=== PATIENT | male | born 1965 | race African-American/Black ===

== ENCOUNTER 2016-12-24 16:52 | Emergency (ER) | payer MEDICARE ==
[~2016-12-24] VITALS: Ht 182.9 cm; Wt 149.5 kg
[~2016-12-24 16:52] MED LIST: ASPI81TA82 PO; ESCI20TA PO; HYDR10TA23 PO; LASI80TA PO; LISI-360 PO; METO100T PO; POTA20IN3 PO; PROC1TAB8 PO; ZOCO40TA PO
[2016-12-24 16:53] VITALS: BP 144/90; PULSE 73; RESP 18; TEMP 98; O2SAT 96
== END 2016-12-24 17:20 | disposition left against medical advice (07) ==
LOC: NED 16:52
DX: R10.9 Unspecified abdominal pain (principal); Z53.21 Procedure and treatment not carried out due to patient leaving prior to being seen by health care provider
CPT/HCPCS: 99281

== ENCOUNTER 2017-02-22 21:35 | Emergency (ER) | payer MEDICARE ==
[~2017-02-22] VITALS: Ht 170.2 cm; Wt 180.0 kg
[2017-02-22 21:37] VITALS: BP 206/105; PULSE 81; RESP 20; TEMP 98.9; O2SAT 96
[2017-02-22 23:17] VITALS: BP_SYST 22; BP_SYST 222; BP_DIAS 99; PULSE 79; RESP 20; O2SAT 97
[2017-02-22 23:18] VITALS: BP 221/102; PULSE 78; RESP 20; O2SAT 97
[2017-02-22] MEDS ORDERED: FURO40TA PO (23:37)
[2017-02-22] MEDS ORDERED: LOSA100T PO (23:37)
[2017-02-22] MEDS ORDERED: METF1000 PO (23:37)
[2017-02-22] MEDS ORDERED: CLON0.2T PO (23:37)
[2017-02-22] MEDS ORDERED: ASPI81TA11 PO (23:37)
[2017-02-22] MEDS ORDERED: SIMV40TA PO (23:37)
[2017-02-22] MEDS ORDERED: METO100T PO (23:37)
[2017-02-22] MEDS ORDERED: SERT-132 PO (23:37)
[2017-02-22] MEDS ORDERED: ISOS60TA PO (23:37)
[2017-02-23] MEDS ORDERED: cefTRIAXone INJ 1,000 MG in SODIUM CHLORIDE 0.9% INJ 100 ML IV ONE ×2
[2017-02-23] MEDS ORDERED: ACETAMINOPHEN/HYDROcodone 325 MG/5 MG TAB PO ONE
[2017-02-23] MEDS ORDERED: RESP: ALBUTEROL 2.5 MG/IPRATROPIUM 0.5 MG NEB (SCH) NEB ONE
[2017-02-23] MEDS ORDERED: cloNIDine HCL 0.1 MG TAB PO ONE
[2017-02-23] MEDS ORDERED: AZITHROMYCIN INJ 500 MG in SODIUM CHLOR 0.9% 250 ML INJ 250 ML IV ONE ×2
--- NOTE | 2017-02-23 00:14 | RADRPT ---
EXAM DATE/TIME: 02/23/2017 00:05 [facility] COMPARISON: CT BRAIN W/O CONTRAST, February 08, 2016, 16:06. INDICATIONS : Cephalgia. RADIATION DOSE: 51.01 CTDIvol (mGy) MEDICAL HISTORY : Hypertension. Gastroesophageal reflux disease. Coronary artery disease. SURGICAL HISTORY : Cardiac catherization. ENCOUNTER: Initial ACUITY: 1 day PAIN SCALE: 5/10 LOCATION: cranial TECHNIQUE: Multiple contiguous axial images were obtained of the head. Using automated exposure control and adj ustment of the mA and/or kV according to patient size, radiation dose was kept as low as reasonably a chievable to obtain optimal diagnostic quality images. FINDINGS: CEREBRUM: The ventricles are normal for age. No evidence of midline shift, mass lesion, hemorrhage or acute in farction. No extra-axial fluid collections are seen. POSTERIOR FOSSA: The cerebellum and brainstem are intact. The 4th ventricle is midline. The cerebellopontine angle i s unremarkable. EXTRACRANIAL: The visualized portion of the orbits is intact. SKULL: The calvaria is intact. No evidence of skull fracture. CONCLUSION: Stable brain appearance. No acute intracranial findings Tawanda Palomares MD on February 23, 2017 at 0:10 Board Certified Radiologist. This report was verified electronically.
[2017-02-23 00:21] LABS: AUTOMATED NEUTROPHIL # 5.3 TH/MM3 (1.8-7.7); BASOPHIL # 0.1 TH/MM3 (0-0.2); BASOPHIL % 0.8 % (0.0-2.0); EOSINOPHIL # 0.6 TH/MM3 (0-0.4); EOSINOPHIL % 6.6 % (0.0-4.0); HEMATOCRIT 39.1 % (39.0-51.0); HEMO FLAGS DIFF FINAL; LYMPH % 19.7 % (9.0-44.0); LYMPHOCYTE # 1.8 TH/MM3 (1.0-4.8); MEAN CELL VOLUME 78.1 FL (80.0-100.0); MEAN CORPUSCULAR HEMOGLOBIN 25.7 PG (27.0-34.0); MEAN CORPUSCULAR HGB CONC 32.9 % (32.0-36.0); MONO % 15.2 % (0.0-8.0); NEUT % 57.7 % (16.0-70.0); PLATELET COUNT 239 TH/MM3 (150-450); RED BLOOD COUNT 5.01 MIL/MM3 (4.50-5.90); RED CELL DISTRIBUTION WIDTH 15.2 % (11.6-17.2); WHITE BLOOD COUNT 9.2 TH/MM3 (4.0-11.0)
--- NOTE | 2017-02-23 00:27 | PD ---
HPI Chief Complaint: Cold / Flu Symptoms Time Seen by Provider: 23:12 Travel History International Travel<30 days: No Contact w/Intl Traveler<30days: No Traveled to known affect area: No History of Present Illness HPI The patient is a 51 year old male who presents to the [facility] emergency department with a history of cough, congestion that he reports began a week ago. The patient reports that the cough is mainly dry in character, however it is occasionally productive of white sputum. He also reports having a white nasal discharge and postnasal drip with sore throat. The patient reports having a frontal sinus headache associated with this. He reports having nausea but no vomiting. He reports that usually when he gets sick his blood pressure will go up and his blood pressure on arrival at its [place] was 221/102. He is due for his nighttime medication. He reports that he has been taking an over-the- counter decongestant for his acute cold symptoms. The patient denies having any worsening lower extremity edema, calf pain, or erythema. He denies having any recent weight gain. The patient denies recent fevers, neck pain, chest pain except with coughing, shortness of breath, abdominal pain, vomiting, diarrhea, urinary symptoms, or neurologic symptoms. [facility] Past Medical History Narrative Medical The patient's past medical history is significant for congestive heart failure, hypertension, hyperlipidemia, acid reflux, gout, anxiety disorder, chronic back pain. Asthma: No Autoimmune Disease: No Anxiety: Yes Heart Rhythm Problems: No Cancer: No Cardiac Catheterization: Yes Cardiomyopathy: Yes (CARDIOMEGALY) Cardiovascular Problems: Yes (ENLARGED HEART) High Cholesterol: Yes Chemotherapy: No Chest Pain: Yes Congestive Heart Failure: Yes COPD: No Coronary Artery Disease: Yes Diabetes: No Diminished Hearing: No Endocrine: No Gastrointestinal Disorders: Yes GERD: Yes Gout: Yes Genitourinary: No Hepatitis: No Hypertension: Yes Immune Disorder: Yes Implanted Vascular Access Dvce: No Musculoskeletal: Yes (CHRONIC BACK PAIN) Neurologic: No Psychiatric: No Reproductive: No Respiratory: Yes (dyspnea on exertion/CHF) Integumentary: Yes (GOUT) Immunizations Current: No Myocardial Infarction: No Radiation Therapy: No Sleep Apnea: No Thyroid Disease: No Ulcer: Yes Tetanus Vaccination: > 5 Years Influenza Vaccination: No Past Surgical History Appendectomy: No Cholecystectomy: No Coronary Artery Bypass Graft: No Other Surgery: No Family History Family Myocardial Infarction: Yes Social History Alcohol Use: No Tobacco Use: No Substance Use: No Allergies-Medications (Allergen,Severity, Reaction): Coded Allergies: Penicillin (Verified Allergy, Severe, HIVES, 02/08/16) Reported Meds & Prescriptions Reported Meds & Active Scripts Active Reported Losartan (Losartan Potassium) 100 Mg Tab 100 Mg PO DAILY Furosemide 40 Mg Tab 40 Mg PO DAILY Simvastatin 40 Mg Tab 40 Mg PO HS Metformin (Metformin HCl) 1,000 Mg Tab 1,000 Mg PO DAILY With a meal Isosorbide Mononitrate ER (Isosorbide Mononitrate) 60 Mg Tab 60 Mg PO BID Clonidine (Clonidine HCl) 0.2 Mg Tab 0.2 Mg PO QID PRN Aspirin EC (Aspirin) 81 Mg Tabdr 81 Mg PO DAILY Metoprolol Tartrate 100 Mg Tab 100 Mg PO BID Sertraline (Sertraline HCl) 50 Mg Tab 50 Mg PO DAILY Review of Systems Except as stated in HPI: all other systems reviewed are Neg General / Constitutional: No: Fever Eyes: No: Visual changes HENT: Positive: Headaches, Sore Throat, Rhinorrhea, Congestion, No: Neck Stiffness, Neck Pain Cardiovascular: Positive: Chest Pain or Discomfort (chest wall pain with coughing), No: Dyspnea on exertion Respiratory: Positive: Cough, No: Shortness of Breath Gastrointestinal: Positive: Nausea, Loss of Appetite, No: Vomiting, Diarrhea, Abdominal Pain Genitourinary: No: Dysuria, Flank Pain Musculoskeletal: No: Pain Skin: No Rash Neurologic: No: Weakness, Focal Abnormalities, Change in Mentation, Slurred Speech, Sensory Disturbance Psychiatric: No: Depression Endocrine: No: Polydipsia Hematologic/Lymphatic: No: Easy Bruising Physical Exam Narrative General: The patient is a well-developed well-nourished male in no acute distress. Head and Neck exam: Head is normocephalic atraumatic. Sinuses: The patient has frontal sinus tenderness on palpation. Eyes: EOMI, pupils are equal round and reactive to light. Nose: Midline septum with erythematous edematous nasal mucosa with a white nasal discharge. Mouth: Dentition unremarkable. Moist mucus membranes. Posterior oropharynx is mildly erythematous without exudates. No tonsillar hypertrophy. Uvula midline. Airway patent. Neck: No palpable lymphadenopathy. No nuchal rigidity. No thyromegaly. Cardiovascular: Regular rate and rhythm without murmurs, gallops, or rubs. No pulse deficit to the extremities and simultaneous auscultation and palpation of his radial artery. Lungs: Soft expiratory wheezes are audible throughout bilateral lung finnegan, no rhonchi or crackles. No accessory muscle use. No paroxysmal abdominal breathing. Abdomen: Soft, without tenderness to palpation in all 4 quadrants of the abdomen. No guarding, rebound, or rigidity. Normal bowel sounds are audible. No tenderness on palpation of McBurney's point. Extremities: No clubbing or cyanosis. The patient has trace pedal edema. 2+ pulses in all 4 extremities. No calf tenderness on palpation. Back: No costovertebral angle tenderness to palpation. Neurologic Exam: Grossly nonfocal. Skin Exam: No rash noted. Intact skin that is warm and dry. Data Data Last Documented VS Vital Signs Date Time Temp Pulse Resp B/P Pulse Ox O2 Delivery O2 Flow Rate FiO2 02/23/17 00:53 82 28 177/102 97 Room Air 02/22/17 21:37 98.9 Orders Electrocardiogram (02/22/17 23:48) Complete Blood Count With Diff (02/22/17 23:48) Basic Metabolic Panel (Bmp) (02/22/17 23:48) C-Reactive Protein (Crp) (02/22/17 23:48) Chest, Single Ap (02/22/17 23:48) Ct Brain W/O Iv Contrast(Rout) (02/22/17 23:48) Iv Access Insert/Monitor (02/22/17 23:48) Ecg Monitoring (02/22/17 23:48) Oximetry (02/22/17 23:48) Clonidine (Catapres) (02/23/17 00:00) Ceftriaxone Inj (Rocephin Inj) (02/23/17 00:00) Azithromycin Inj (Zithromax Inj) (02/23/17 00:00) Acetamin-Hydrocod 325-5 Mg (Capulin 5-325 (02/23/17 00:00) Albuterol-Ipratropium Neb (Duoneb Neb) (02/23/17 00:00) Labs Laboratory Tests Test 02/22/17 23:30 White Blood Count 9.2 TH/MM3 Red Blood Count 5.01 MIL/MM3 Hemoglobin 12.9 GM/DL Hematocrit 39.1 % Mean Corpuscular Volume 78.1 FL Mean Corpuscular Hemoglobin 25.7 PG Mean Corpuscular Hemoglobin 32.9 % Concent Red Cell Distribution Width 15.2 % Platelet Count 239 TH/MM3 Mean Platelet Volume 8.5 FL Neutrophils (%) (Auto) 57.7 % Lymphocytes (%) (Auto) 19.7 % Monocytes (%) (Auto) 15.2 % Eosinophils (%) (Auto) 6.6 % Basophils (%) (Auto) 0.8 % Neutrophils # (Auto) 5.3 TH/MM3 Lymphocytes # (Auto) 1.8 TH/MM3 Monocytes # (Auto) 1.4 TH/MM3 Eosinophils # (Auto) 0.6 TH/MM3 Basophils # (Auto) 0.1 TH/MM3 CBC Comment DIFF FINAL Differential Comment Sodium Level 142 MEQ/L Potassium Level 3.9 MEQ/L Chloride Level 102 MEQ/L Carbon Dioxide Level 34.3 MEQ/L Anion Gap 6 MEQ/L Blood Urea Nitrogen 9 MG/DL Creatinine 1.18 MG/DL Estimat Glomerular Filtration 78 ML/MIN Rate Random Glucose 110 MG/DL Calcium Level 8.7 MG/DL C-Reactive Protein 0.97 MG/DL [facility] Medical Decision Making Medical Screen Exam Complete: Yes Emergency Medical Condition: Yes Medical Record Reviewed: Yes Differential Diagnosis Pneumonia, versus bronchitis, versus influenza, versus reactive airway related to bronchitis versus pneumothorax, versus congestive heart failure exacerbation Narrative Course During the course of the patients emergency department visit, the patients history, examination, and differential diagnosis were reviewed with the patient. The patient had IV access obtained and blood work sent for analysis. The patient was placed on a clinical research monitor with oximetry and blood pressure monitoring. An EKG was done on arrival. The patient's EKG shows a sinus rhythm heart rate is 79, J-point elevation is noted in lead V2 with upsloping ST segments, however this is compared to a prior EKG done February 08, 2016 and is similar in appearance with the patient has a QRS duration 121 ms, QTC [address] segment elevation or depression is noted. The patient was initially provided a DuoNeb 2, Rocephin 1 g IV, Zithromax 500 IV, Lortab for pain. The patient was given clonidine 0.1 by mouth times one for hypertension. The patients laboratory studies were reviewed and remarkable for a white count of 9.2, hemoglobin 12.9, platelets 239 with 15.2 monocytes, BNP is remarkable for a CO2 of 34.3, glucose 110, C-reactive protein 0.97. Radiology studies were reviewed and remarkable for chest x-ray shows no acute abnormality. No evidence of pulmonary edema. CT scan of the brain shows a stable brain, no acute intracranial findings. The patient on examination has wheezing consistent with reactive airway associated with bronchitis. The patient will be discharged home with a prescription for doxycycline and a pro-air inhaler. The patient is instructed regarding the importance of avoiding decongestants as this can exacerbate his hypertension. The patient is resting comfortably and feels better, is alert and in no distress. The patients results and examination findings were discussed with the patient. The repeat examination is unremarkable and benign. The history, exam, diagnostic testing, and current condition do not suggest any significant pathology to warrant further testing, continued ED treatment, admission, or surgical evaluation at this point. The vital signs have been stable. The patient does not have uncontrollable pain, intractable vomiting, or other significant symptoms. The patient's condition is stable and appropriate for discharge. The patient will pursue further outpatient evaluation with a primary care physician or other designated or consulting physician as indicated in the discharge instructions. The patient expressed understanding and was agreeable with this plan. Diagnosis Primary Impression: Bronchitis Additional Impression: Reactive airway disease Qualified Code: J45.20 - Reactive airway disease, mild intermittent, uncomplicated Referrals: Primary Care Physician 2 days Patient Instructions: Acute Bronchitis (ED), General Instructions, Reactive Airways Disease (ED) Med/Other Pt SpecificInfo: Prescription(s) given Scripts Benzonatate 200 Mg [id number] Mg PO TID PRN (COUGH) #15 CAP Ref 0 Prov:Heavenly Smith MD 02/23/17 Albuterol Powder Inh (Proair Respiclick Inh)90 Mcg/Act Aerp2 Puff INH Q4-6H PRN (SHORTNESS OF BREATH) #1 INHALER Ref 0 Prov:Heavenly Smith MD 02/23/17 Doxycycline Hyclate 100 Mg [id number] Mg PO BID #20 CAP Ref 0 Prov:Heavenly Smith MD 02/23/17 Disposition: DISCHARGE HOME Condition: Stable Heavenly Smith MD February 23, 2017 00:27
--- NOTE | 2017-02-23 00:45 | RADRPT ---
EXAM DATE/TIME: 02/23/2017 00:33 [facility] COMPARISON: CHEST SINGLE AP, February 08, 2016, 15:49. INDICATIONS : Cough. Congestion. MEDICAL HISTORY : None. SURGICAL HISTORY : None. ENCOUNTER: Initial ACUITY: 1 day PAIN SCORE: 6/10 LOCATION: Bilateral chest FINDINGS: A single view of the chest demonstrates the lungs to be symmetrically aerated without evidence of mas s, infiltrate or effusion. The cardiomediastinal contours are unremarkable. Osseous structures are intact. CONCLUSION: No acute disease. Tawanda Palomares MD on February 23, 2017 at 0:43 Board Certified Radiologist. This report was verified electronically.
[2017-02-23 00:46] LABS: BICARBONATE 34.3 MEQ/L (21.0-32.0); POTASSIUM 3.9 MEQ/L (3.5-5.1)
[2017-02-23 00:53] VITALS: BP 177/102; PULSE 82; RESP 28; O2SAT 97
[2017-02-23] MEDS ORDERED: DOXY100C PO (01:12)
[2017-02-23] MEDS ORDERED: BENZ1CAP34 PO (01:12)
[2017-02-23] MEDS ORDERED: ALBU1AER5 INH (01:12)
[2017-02-23 01:25] VITALS: BP 157/88
--- NOTE | 2017-02-23 08:16 | EKG ---
Date Performed: 02/23/2017 Time Performed: 00:23:57 PTAGE: 51 years EKG: Sinus rhythm POSSIBLE LEFT VENTRICULAR HYPERTROPHY Cannot rule out LATERAL MYOCARDIAL INFARCTION Nonspecific intr aventricular conduction defect ABNORMAL ECG No significant change from prior electrocardiogram. PREVIOUS TRACING : 02/08/2016 15.54 DOCTOR: Declan Barroso Interpretating Date/Time 02/23/2017 08:15:04
== END 2017-02-23 01:25 | disposition home or self-care (01) ==
LOC: NEPE 21:35
DX: J40 Bronchitis, not specified as acute or chronic (principal); J45.20 Mild intermittent asthma, uncomplicated; I50.9 Heart failure, unspecified; I25.10 Atherosclerotic heart disease of native coronary artery without angina pectoris; I10 Essential (primary) hypertension; I51.7 Cardiomegaly
CPT/HCPCS: 70450; 71010; 80048; 85025; 86140; 93005; 94664; 96374; 96375; 99285; J0456; J0696; J7050

== ENCOUNTER 2017-02-27 07:48 | Emergency (ER) | payer MEDICARE ==
[~2017-02-27] VITALS: Ht 182.9 cm; Wt 140.0 kg
[~2017-02-27 07:48] MED LIST changes: +ALBU1AER5 INH; +ASPI81TA11 PO; -ASPI81TA82 PO; +BENZ1CAP34 PO; +CLON0.2T PO; +DOXY100C PO; -ESCI20TA PO; +FURO40TA PO; -HYDR10TA23 PO; +ISOS60TA PO; -LASI80TA PO; -LISI-360 PO; +LOSA100T PO; +METF1000 PO; -POTA20IN3 PO; -PROC1TAB8 PO; +SERT-132 PO; +SIMV40TA PO; -ZOCO40TA PO
[2017-02-27 07:51] VITALS: BP 212/104; PULSE 89; RESP 16; TEMP 98.6; O2SAT 98
[2017-02-27] MEDS ORDERED: OCEA0.653 EACH NARE (08:33)
[2017-02-27] MEDS ORDERED: CLOT1CRE6 TOPICAL (08:33)
--- NOTE | 2017-02-27 08:33 | PD ---
HPI Chief Complaint: Complaint Time Seen by Provider: 08:08 Travel History International Travel<30 days: No Contact w/Intl Traveler<30days: No History of Present Illness HPI 51-year-old male arrives with a white discharge about the alexandra of the glands in within the region of the foreskin of the penis. Duration a few days. It seems to coincide with initiation of oral antibiotics for URI. Patient believes it might be due to his antibiotics. He has no penile discharge. There is no dysuria/frequency or urinary complaint otherwise. He has no complaint regarding testicular pain or scrotal pain. He notes mild persistent nasal congestion associated with after mentioned URI. No fever. He reports compliance with metformin for what he reports as a prediabetic state. He has had to take his morning antihypertensives, a very extensive regimen, and reports symptoms today to be consistent with normal hypertensive state prior to morning meds. PFSH Past Medical History Asthma: No Autoimmune Disease: No Anxiety: Yes Heart Rhythm Problems: No Cancer: No Cardiac Catheterization: Yes Cardiomyopathy: Yes (CARDIOMEGALY) Cardiovascular Problems: Yes (ENLARGED HEART) High Cholesterol: Yes Chemotherapy: No Chest Pain: Yes Congestive Heart Failure: Yes COPD: No Coronary Artery Disease: Yes Diabetes: Yes Diminished Hearing: No Endocrine: No Gastrointestinal Disorders: Yes GERD: Yes Gout: Yes Genitourinary: No Hepatitis: No Hypertension: Yes Immune Disorder: Yes Implanted Vascular Access Dvce: No Musculoskeletal: Yes (CHRONIC BACK PAIN) Neurologic: No Psychiatric: No Reproductive: No Respiratory: Yes (dyspnea on exertion/CHF) Integumentary: Yes (GOUT) Immunizations Current: No Myocardial Infarction: No Radiation Therapy: No Sleep Apnea: No Thyroid Disease: No Ulcer: Yes Past Surgical History Appendectomy: No Cholecystectomy: No Coronary Artery Bypass Graft: No Other Surgery: No Social History Alcohol Use: No Tobacco Use: No Substance Use: No Allergies-Medications (Allergen,Severity, Reaction): Coded Allergies: Penicillin (Verified Allergy, Severe, HIVES, 02/08/16) Reported Meds & Prescriptions Reported Meds & Active Scripts Active Benzonatate 200 Mg Cap 200 Mg PO TID PRN Proair Respiclick Inh (Albuterol Sulfate) 90 Mcg/Act Aerp 2 Puff INH Q4-6H PRN Doxycycline Hyclate 100 Mg Cap 100 Mg PO BID Reported Losartan (Losartan Potassium) 100 Mg Tab 100 Mg PO DAILY Furosemide 40 Mg Tab 40 Mg PO DAILY Simvastatin 40 Mg Tab 40 Mg PO HS Metformin (Metformin HCl) 1,000 Mg Tab 1,000 Mg PO DAILY With a meal Isosorbide Mononitrate ER (Isosorbide Mononitrate) 60 Mg Tab 60 Mg PO BID Clonidine (Clonidine HCl) 0.2 Mg Tab 0.2 Mg PO QID PRN Aspirin EC (Aspirin) 81 Mg Tabdr 81 Mg PO DAILY Metoprolol Tartrate 100 Mg Tab 100 Mg PO BID Sertraline (Sertraline HCl) 50 Mg Tab 50 Mg PO DAILY Review of Systems Except as stated in HPI: all other systems reviewed are Neg General / Constitutional: No: Fever, Chills Skin: Positive Other (penile glans as noted in HPI) Physical Exam Narrative GENERAL: 51 yo M, WNWD SKIN: Warm and dry. HEAD: Normocephalic. ENT: No maxillary/frontal sinus distribution TTP. Oropharynx widely patent : Minimal white discharge about alexandra of glans with trace TTP, no urethral discharge. EYES: No scleral icterus. No injection or drainage. NECK: Supple, trachea midline. No JVD or lymphadenopathy. CARDIOVASCULAR: Regular rate and rhythm without murmurs, gallops, or rubs. Data Data Last Documented VS Vital Signs Date Time Temp Pulse Resp B/P Pulse Ox O2 Delivery O2 Flow Rate FiO2 02/27/17 07:51 98.6 89 16 212/104 98 VS reviewed, HTN noted MDM Medical Decision Making Medical Screen Exam Complete: Yes Emergency Medical Condition: Yes Medical Record Reviewed: Yes Differential Diagnosis Balanitis, URI, sinusitis Narrative Course COmpliance with home antihypertensives discussed. One dose clonidine here. Diet/ lifestyle modification discussed. Scripts as below. Diagnosis Primary Impression: Balanitis Additional Impression: Nasal congestion Referrals: Crystal Diaz 2 days Additional Instructions: You have a choice when it comes to health care, and we are glad that you chose [facility]. Hopefully, we have met your expectations on today's visit. You are welcome to return to [facility] at any time, as we are committed to meeting the health care needs of our community. Med/Other Pt SpecificInfo: Prescription(s) given Scripts Saline Nasal ([place] Nasal [place])0.65% Spray2 [place] EACH NARE DIRECTED PRN ( NASAL CONGESTION) 5 Days Ref 0 Prov:Kris Torres MD 02/27/17 Clotrimazole Topical (Clotrimazole Anti-Fungal Topical)1% Cream1 Applic TOPICAL BID 3 Days Ref 0 Prov:Kris Torres MD 02/27/17 Disposition: 01 DISCHARGE HOME Condition: Stable Kris Torres MD Feb 27, 2017 08:33
[2017-02-27] MEDS ORDERED: cloNIDine HCL 0.1 MG TAB PO ONE (08:45)
[2017-02-27 08:46] VITALS: BP 148/83; PULSE 72; RESP 18
== END 2017-02-27 08:48 | disposition home or self-care (01) ==
LOC: NEPE 07:48
DX: N48.1 Balanitis (principal); R09.81 Nasal congestion
CPT/HCPCS: 99283

== ENCOUNTER 2017-04-04 08:45 | Emergency (ER) | payer MEDICARE ==
[~2017-04-04] VITALS: Ht 182.9 cm; Wt 145.0 kg
[~2017-04-04 08:45] MED LIST changes: +CLOT1CRE6 TOPICAL; +OCEA0.653 EACH NARE
[2017-04-04 08:46] VITALS: BP 251/121; PULSE 69; RESP 17; TEMP 98.2; O2SAT 98
[2017-04-04 09:07] VITALS: BP 194/94; PULSE 60; RESP 17; O2SAT 97
[2017-04-04] MEDS ORDERED: diphenhydrAMINE HCL 50 MG/ML VIAL IV PUSH ONE (09:30)
[2017-04-04] MEDS ORDERED: PROCHLORPERAZINE INJ 10 MG/2 ML VIAL IV PUSH ONE (09:30)
[2017-04-04] MEDS ORDERED: FUROSEMIDE 40 MG/4 ML VIAL IV PUSH ONE (09:30)
--- NOTE | 2017-04-04 09:30 | PD ---
HPI . Hypertension Chief Complaint: Hypertension Time Seen by Provider: 09:22 Travel History International Travel<30 days: No Contact w/Intl Traveler<30days: No Traveled to known affect area: No History of Present Illness HPI Patient presents with the chief complaint of hypertension and headache. Patient reports that his blood pressure has not been well controlled lately. He states that it was particularly high this morning. He is also complaining with a frontal headache this morning. Pain is rated as 10/10. Patient believes that his headache is exacerbated by elevated blood pressure. He reports no relieving factors. Pain is described as being in his forehead. He has no associated symptoms such as blurred vision, nausea and dizziness. Patient denies chest pain, shortness of breath, increased peripheral edema. The patient does state that he is out of his Lasix. He states he's been out for a couple of days. He states that they are supposed to have it ready for him at the pharmacy today. He reports compliance with his other blood pressure medications. PFSH Past Medical History Asthma: No Autoimmune Disease: No Anxiety: Yes Heart Rhythm Problems: No Cancer: No Cardiac Catheterization: Yes Cardiomyopathy: Yes (CARDIOMEGALY) Cardiovascular Problems: Yes High Cholesterol: Yes Chemotherapy: No Chest Pain: Yes Congestive Heart Failure: Yes COPD: No Coronary Artery Disease: Yes Diabetes: No Diminished Hearing: No Endocrine: No Gastrointestinal Disorders: Yes GERD: Yes Gout: Yes Genitourinary: No Hepatitis: No Hypertension: Yes Immune Disorder: Yes Implanted Vascular Access Dvce: No Musculoskeletal: Yes (CHRONIC BACK PAIN) Neurologic: No Psychiatric: No Reproductive: No Respiratory: Yes (dyspnea on exertion/CHF) Integumentary: Yes (GOUT) Immunizations Current: No Myocardial Infarction: No Radiation Therapy: No Sleep Apnea: No Thyroid Disease: No Ulcer: Yes Tetanus Vaccination: > 5 Years Influenza Vaccination: No Past Surgical History Appendectomy: No Cholecystectomy: No Coronary Artery Bypass Graft: No Other Surgery: No Family History Family Myocardial Infarction: Yes Social History Alcohol Use: No (pt denies) Tobacco Use: No (pt denies) Substance Use: No (pt denies) Allergies-Medications (Allergen,Severity, Reaction): Coded Allergies: Penicillin (Verified Allergy, Severe, HIVES, 04/04/17) Reported Meds & Prescriptions Reported Meds & Active Scripts Active Proair Respiclick Inh (Albuterol Sulfate) 90 Mcg/Act Aerp 2 Puff INH Q4-6H PRN Reported Losartan (Losartan Potassium) 100 Mg Tab 100 Mg PO DAILY Furosemide 40 Mg Tab 40 Mg PO DAILY Simvastatin 40 Mg Tab 40 Mg PO HS Isosorbide Mononitrate ER (Isosorbide Mononitrate) 60 Mg Tab 60 Mg PO BID Clonidine (Clonidine HCl) 0.2 Mg Tab 0.2 Mg PO QID PRN Aspirin EC (Aspirin) 81 Mg Tabdr 81 Mg PO DAILY Metoprolol Tartrate 100 Mg Tab 100 Mg PO BID Sertraline (Sertraline HCl) 50 Mg Tab 50 Mg PO DAILY Review of Systems Except as stated in HPI: all other systems reviewed are Neg Eyes: No: Blurred Vision HENT: Positive: Headaches, No: Lightheadedness Cardiovascular: No: Chest Pain or Discomfort Respiratory: No: Shortness of Breath Gastrointestinal: No: Nausea, Vomiting Musculoskeletal: No: Edema Neurologic: Positive: Headache, No: Change in Mentation Physical Exam Narrative GENERAL: Awake and alert and in no acute distress. SKIN: Warm and dry. HEAD: Atraumatic. Normocephalic. EYES: Pupils equal and round. Extraocular movements are intact. ENT: No nasal bleeding or discharge. Mucous membranes pink and moist. NECK: Trachea midline. Neck is supple. CARDIOVASCULAR: Regular rate and rhythm. Heart sounds are normal. RESPIRATORY: No accessory muscle use. Lungs are clear with full air movement throughout. GASTROINTESTINAL: Abdomen soft, non-tender, nondistended. MUSCULOSKELETAL: No obvious deformities. No edema. NEUROLOGICAL: Awake and alert. No obvious cranial nerve deficits. Motor grossly within normal limits. Normal speech. Lead Software Developer strengths are full and equal. [id number] exam is intact. PSYCHIATRIC: Appropriate mood and affect; insight and judgment normal. Data Data Last Documented VS Vital Signs Date Time Temp Pulse Resp B/P Pulse Ox O2 Delivery O2 Flow Rate FiO2 04/04/17 10:00 62 17 159/95 99 Room Air 04/04/17 08:46 98.2 Orders ^ Saline Lock (04/04/17 09:22) Furosemide Inj (Lasix Inj) (04/04/17 09:30) Prochlorperazine Inj (Compazine Inj) (04/04/17 09:30) Diphenhydramine Inj (Benadryl Inj) (04/04/17 09:30) MDM Medical Decision Making Medical Screen Exam Complete: Yes Emergency Medical Condition: Yes Differential Diagnosis Differential diagnosis of headache includes but is not limited to migraine, muscle contraction headache, brain tumor, brain bleed Narrative Course This patient presents with a frontal headache. He is also concerned about his blood pressure. I have ordered Compazine and Benadryl for his headache. I will give him Lasix as he has missed his last couple of doses. Patient is resting comfortably. He states that his headache is completely resolved. Diagnosis Primary Impression: Headache Qualified Code: R51 - Acute nonintractable headache, unspecified headache type Additional Impression: HTN (hypertension) Qualified Code: I10 - Essential hypertension Disposition: DISCHARGE HOME Condition: Stable Lisette Vasquez MD Apr 04, 2017 09:30
[2017-04-04 10:00] VITALS: BP 159/95; PULSE 62; RESP 17; O2SAT 99
[2017-04-04 10:28] VITALS: BP 158/88; TEMP 97.9
== END 2017-04-04 10:28 | disposition home or self-care (01) ==
LOC: NEPC 08:45
DX: R51 Headache (principal); E78.00 Pure hypercholesterolemia, unspecified; I11.0 Hypertensive heart disease with heart failure; I25.10 Atherosclerotic heart disease of native coronary artery without angina pectoris; I50.9 Heart failure, unspecified; Z88.0 Allergy status to penicillin; K21.9 Gastro-esophageal reflux disease without esophagitis; I42.9 Cardiomyopathy, unspecified; M10.9 Gout, unspecified
CPT/HCPCS: 96374; 96375; 99284; J0780; J1200; J1940

== ENCOUNTER 2017-07-25 17:03 | Emergency (ER) | payer MEDICARE ==
[~2017-07-25] VITALS: Ht 182.9 cm; Wt 164.0 kg
[~2017-07-25 17:03] MED LIST changes: -BENZ1CAP34 PO; -CLOT1CRE6 TOPICAL; -DOXY100C PO; -METF1000 PO; -OCEA0.653 EACH NARE
[2017-07-25 17:15] VITALS: BP 151/85; PULSE 75; RESP 18; TEMP 98.5; O2SAT 95
[2017-07-25] MEDS ORDERED: SODIUM CHLOR 0.9% 1000 ML INJ 1,000 ML IV SCH (17:33)
--- NOTE | 2017-07-25 17:39 | PD ---
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 however over last 2 days he has felt a mid umbilical region pain, unsure if radiating since he feels both back pain and abdominal pain, 04/06, denies n/v/d/fever/cough/jenkins/ chart and rn notes reviewed pmhx: htn, PFSH Past Medical History Asthma: No Autoimmune Disease: No Anxiety: Yes Heart Rhythm Problems: No Cancer: No Cardiac Catheterization: Yes Cardiomyopathy: Yes (CARDIOMEGALY) Cardiovascular Problems: Yes High Cholesterol: Yes Chemotherapy: No Chest Pain: Yes Congestive Heart Failure: Yes COPD: No Coronary Artery Disease: Yes Diabetes: No Diminished Hearing: No Endocrine: No Gastrointestinal Disorders: Yes GERD: Yes Gout: Yes Genitourinary: No Hepatitis: No Hypertension: Yes Immune Disorder: Yes Implanted Vascular Access Dvce: No Musculoskeletal: Yes (CHRONIC BACK PAIN) Neurologic: No Psychiatric: No Reproductive: No Respiratory: Yes (dyspnea on exertion/CHF) Integumentary: Yes (GOUT) Immunizations Current: No Myocardial Infarction: No Radiation Therapy: No Sleep Apnea: No Thyroid Disease: No Ulcer: Yes Past Surgical History Appendectomy: No Cholecystectomy: No Coronary Artery Bypass Graft: No Other Surgery: No Social History Alcohol Use: No (pt denies) Tobacco Use: No (pt denies) Substance Use: No (pt denies) Allergies-Medications (Allergen,Severity, Reaction): Coded Allergies: penicillin G (Unverified Allergy, Severe, HIVES, 07/25/17) Reported Meds & Prescriptions Reported Meds & Active Scripts Active Proair Respiclick Inh (Albuterol Sulfate) 90 Mcg/Act Aerp 2 Puff INH Q4-6H PRN Reported Amlodipine (Amlodipine Besylate) 5 Mg Tab 5 Mg PO DAILY Metformin (Metformin HCl) 1,000 Mg Tab 1,000 Mg PO BIDPC Losartan (Losartan Potassium) 100 Mg Tab 100 Mg PO DAILY Furosemide 40 Mg Tab 40 Mg PO DAILY Simvastatin 40 Mg Tab 40 Mg PO HS Isosorbide Mononitrate ER (Isosorbide Mononitrate) 60 Mg Tab 60 Mg PO BID Clonidine (Clonidine HCl) 0.2 Mg Tab 0.2 Mg PO TID PRN Aspirin EC (Aspirin) 81 Mg Tabdr 81 Mg PO DAILY Metoprolol Tartrate 100 Mg Tab 100 Mg PO BID Sertraline (Sertraline HCl) 50 Mg Tab 50 Mg PO DAILY Review of Systems Except as stated in HPI: all other systems reviewed are Neg Gastrointestinal: Positive: Abdominal Pain Musculoskeletal: Positive: Pain (low back pain) Physical Exam Narrative GENERAL: SKIN: Warm and dry. HEAD: Atraumatic. Normocephalic. EYES: Pupils equal and round. No scleral icterus. No injection or drainage. ENT: No nasal bleeding or discharge. Mucous membranes pink and moist. NECK: Trachea midline. No JVD. CARDIOVASCULAR: Regular rate and rhythm. RESPIRATORY: No accessory muscle use. Clear to auscultation. Breath sounds equal bilaterally. GASTROINTESTINAL: obese, Abdomen soft, non-tender, nondistended MUSCULOSKELETAL: Extremities without clubbing, cyanosis, or edema. No obvious deformities. NEUROLOGICAL: Awake and alert. No obvious cranial nerve deficits. Motor grossly within normal limits. Five out of 5 muscle strength in the arms and legs. Normal speech. PSYCHIATRIC: Appropriate mood and affect; insight and judgment normal. Data Data Last Documented VS Vital Signs Date Time Temp Pulse Resp B/P (MAP) Pulse Ox O2 Delivery O2 Flow Rate FiO2 07/25/17 17:15 98.5 75 18 151/85 (107) 95 Orders Orders Complete Blood Count With Diff (07/25/17 17:33) Comprehensive Metabolic Panel (07/25/17 17:33) Lipase (07/25/17 17:33) Ct Abd/Pel W/O Iv Contrast (07/25/17 17:33) Iv Access Insert/Monitor (07/25/17 17:33) Ecg Monitoring (07/25/17 17:33) Oximetry (07/25/17 17:33) NPO (07/25/17 17:33) Hydromorphone Pf Inj (Dilaudid Pf Inj) (07/25/17 17:45) Ondansetron Inj (Zofran Inj) (07/25/17 17:45) Sodium Chlor 0.9% 1000 Ml Inj (Ns 1000 M (10/28/17 17:33) Sodium Chloride 0.9% Flush (Ns Flush) (07/25/17 17:45) Electrocardiogram (07/25/17 17:33) Labs Laboratory Tests Test 07/25/17 17:45 White Blood Count 7.7 TH/MM3 Red Blood Count 5.40 MIL/MM3 Hemoglobin 13.8 GM/DL Hematocrit 43.7 % Mean Corpuscular Volume 80.9 FL Mean Corpuscular Hemoglobin 25.6 PG Mean Corpuscular Hemoglobin Concent 31.6 % Red Cell Distribution Width 16.5 % Platelet Count 297 TH/MM3 Mean Platelet Volume 8.1 FL Neutrophils (%) (Auto) 55.3 % Lymphocytes (%) (Auto) 26.4 % Monocytes (%) (Auto) 12.2 % Eosinophils (%) (Auto) 5.3 % Basophils (%) (Auto) 0.8 % Neutrophils # (Auto) 4.2 TH/MM3 Lymphocytes # (Auto) 2.0 TH/MM3 Monocytes # (Auto) 0.9 TH/MM3 Eosinophils # (Auto) 0.4 TH/MM3 Basophils # (Auto) 0.1 TH/MM3 CBC Comment DIFF FINAL Differential Comment Blood Urea Nitrogen 15 MG/DL Creatinine 1.10 MG/DL Random Glucose 102 MG/DL Total Protein 8.1 GM/DL Albumin 3.4 GM/DL Calcium Level 9.1 MG/DL Alkaline Phosphatase 87 U/L Aspartate Amino Transf (AST/SGOT) 18 U/L Alanine Aminotransferase (ALT/SGPT) 21 U/L Total Bilirubin 0.2 MG/DL Sodium Level 140 MEQ/L Potassium Level 4.1 MEQ/L Chloride Level 104 MEQ/L Carbon Dioxide Level 30.3 MEQ/L Anion Gap 6 MEQ/L Estimat Glomerular Filtration Rate 85 ML/MIN Lipase 148 U/L [facility] Medical Decision Making Medical Screen Exam Complete: Yes Emergency Medical Condition: Yes Medical Record Reviewed: Yes Interpretation(s) nsr, 69, lvh, no stemi pattern but present t wave inv on III/AVF Differential Diagnosis musculoskeletal low back pain v pancreatitis v abdominal aneurysm v colitis Narrative Course ct neg for aneurysm, colitis, kidney stones at this point however postitive for spinal stenosis on lumbar Diagnosis Primary Impression: reducible umbilical hernia Additional Impression: Spinal stenosis of lumbar region at multiple levels Referrals: Bhaskar Mo MD for further evaluation of spinal stenosis Patient Instructions: General Instructions, Lumbar Spinal Stenosis (ED) Scripts Oxycodone-Acetaminophen (Percocet) 10-325 mg Tab 1 TAB PO Q4H Y for breakthrough pain, #12 TAB 0 Refills Prov: Jerry Lema MD 07/25/17 Ketorolac (Ketorolac) 10 Mg Tab 10 MG PO BID Y for Pain Management, #20 TAB 0 Refills Prov: Jerry Lema MD 07/25/17 Baclofen (Baclofen) 20 Mg Tab 20 MG PO TID for Muscle Spasm for 7 Days, #21 TAB 0 Refills Prov: Jerry Lema MD 07/25/17 Disposition: 01 DISCHARGE HOME Condition: Stable Jerry Lema MD Jul 25, 2017 17:39
[2017-07-25 17:45] VITALS: O2SAT 95
[2017-07-25] MEDS ORDERED: SODIUM CHLORIDE 0.9% FLUSH 10 ML FLUSH IV FLUSH PRN (17:45)
[2017-07-25] MEDS ORDERED: HYDROmorphone HCL PF 2 MG/ML VIAL IVS ONE (17:45)
[2017-07-25] MEDS ORDERED: ONDANSETRON HCL 4 MG/2 ML VIAL IVP ONE (17:45)
[2017-07-25 17:57] LABS: AUTOMATED NEUTROPHIL # 4.2 TH/MM3 (1.8-7.7); BASOPHIL # 0.1 TH/MM3 (0-0.2); BASOPHIL % 0.8 % (0.0-2.0); EOSINOPHIL # 0.4 TH/MM3 (0-0.4); EOSINOPHIL % 5.3 % (0.0-4.0); HEMATOCRIT 43.7 % (39.0-51.0); HEMOGLOBIN 13.8 GM/DL (13.0-17.0); LYMPH % 26.4 % (9.0-44.0); MEAN CELL VOLUME 80.9 FL (80.0-100.0); MEAN CORPUSCULAR HEMOGLOBIN 25.6 PG (27.0-34.0); MEAN CORPUSCULAR HGB CONC 31.6 % (32.0-36.0); MEAN PLATELET VOLUME 8.1 FL (7.0-11.0); MONO % 12.2 % (0.0-8.0); MONOCYTE # 0.9 TH/MM3 (0-0.9); NEUT % 55.3 % (16.0-70.0); PLATELET COUNT 297 TH/MM3 (150-450); RED CELL DISTRIBUTION WIDTH 16.5 % (11.6-17.2); WHITE BLOOD COUNT 7.7 TH/MM3 (4.0-11.0)
[2017-07-25 18:05] LABS: CHLORIDE 104 MEQ/L (98-107); SODIUM (NA) 140 MEQ/L (136-145)
[2017-07-25] MEDS ORDERED: METF1000 PO (18:06)
[2017-07-25] MEDS ORDERED: AMLO5TAB2 PO (18:06)
[2017-07-25 18:09] LABS: ALBUMIN 3.4 GM/DL (3.4-5.0); BICARBONATE 30.3 MEQ/L (21.0-32.0); BLOOD UREA NITROGEN 15 MG/DL (7-18); CALCIUM 9.1 MG/DL (8.5-10.1); GLUCOSE,RANDOM 102 MG/DL (74-106); LIPASE 148 U/L (73-393)
[2017-07-25 18:12] LABS: ALT (GPT) 21 U/L (12-78); AST (GOT) 18 U/L (15-37); GLOMERULAR FILTRATION RATE 85 ML/MIN (>89)
[2017-07-25 18:14] LABS: TOTAL BILIRUBIN ADULT 0.2 MG/DL (0.2-1.0); TOTAL PROTEIN 8.1 GM/DL (6.4-8.2)
[2017-07-25 18:15] LABS: ALKALINE PHOSPHATASE 87 U/L (45-117)
--- NOTE | 2017-07-25 18:47 | RADRPT ---
EXAM DATE/TIME: 07/25/2017 18:25 [facility] COMPARISON: No previous studies available for comparison. INDICATIONS : Bilateral flank pain today. ORAL CONTRAST: No oral contrast ingested. RADIATION DOSE: 27.89 CTDIvol (mGy) ; Patient body habitus MEDICAL HISTORY : Congestive heart failure. Hypertension. Gastroesophageal reflux disease. SURGICAL HISTORY : cardiac catheterization ENCOUNTER: Initial ACUITY: 1 day PAIN SCALE: 7/10 LOCATION: Bilateral flank TECHNIQUE: Renal colic protocol. Volumetric scanning of the abdomen and pelvis was performed. Using automated exposure control and adjustment of the mA and/or kV according to patient size, radiation dose was kep t as low as reasonably achievable to obtain optimal diagnostic quality images. DICOM format image da ta is available electronically for review and comparison. FINDINGS: Right side: No calcified stones and no evidence of hydronephrosis. No calcifications along the course of the rig ht ureter. Left side: No calcified stones and no evidence of hydronephrosis. No calcifications along the course of the ure ter. There is a 2 cm hypodense area in the upper pole parenchyma of the upper pole which be further characterized noncontrast study, possibly represents a cyst. Bladder: Smooth margins. No calcifications of the lumen. Other: No calcified gallstones. No dilated loops of small or large bowel. The appendix is identified in th e right lower quadrant and is located posterolateral to the cecum. Fat-containing umbilical hernia w ith separation between the rectus muscles measuring 4.4 cm. Advanced degenerative changes in the low er lumbar spine left facet joint with endplate hypertrophy and disc disease suggesting multilevel spi nal stenosis. The visualized lower lungs are clear. CONCLUSION: 1. No calcified stones or evidence of hydronephrosis. 2. Moderate-sized fat-containing umbilical hernia. 3. Advanced degenerative changes in the lower lumbar spine. Umesh Reina MD on July 25, 2017 at 18:39 Board Certified Radiologist. This report was verified electronically.
[2017-07-25] MEDS ORDERED: KETO10 PO (19:03)
[2017-07-25] MEDS ORDERED: BACL20TA PO (19:03)
[2017-07-25] MEDS ORDERED: PERC10TA27 PO (19:03)
[2017-07-25 19:19] VITALS: BP 166/72
--- NOTE | 2017-07-26 20:50 | EKG ---
Date Performed: 07/25/2017 Time Performed: 17:39:24 PTAGE: 51 years EKG: Sinus rhythm INTRAVENTRICULAR CONDUCTION DELAY LEFT VENTRICULAR HYPERTROPHY AND ST-T CHANGE POSSIBLE LATERAL MYOC ARDIAL INFARCTION ABNORMAL ECG PREVIOUS TRACING : 02/23/2017 00.23 DOCTOR: Ysabel Whitehead Interpretating Date/Time 07/26/2017 20:45:59
== END 2017-07-25 19:23 | disposition home or self-care (01) ==
LOC: PHED 17:03
DX: K42.9 Umbilical hernia without obstruction or gangrene (principal); M48.061 Spinal stenosis, lumbar region without neurogenic claudication; I51.7 Cardiomegaly; R94.31 Abnormal electrocardiogram [ECG] [EKG]; F41.9 Anxiety disorder, unspecified; I11.0 Hypertensive heart disease with heart failure; I50.9 Heart failure, unspecified; E78.00 Pure hypercholesterolemia, unspecified; K21.9 Gastro-esophageal reflux disease without esophagitis
CPT/HCPCS: 74176; 80053; 83690; 85025; 93005; 96361; 96374; 96375; 99285; J1170; J2405; J7030

== ENCOUNTER 2017-08-07 16:58 | Emergency (ER) | payer MEDICARE ==
[~2017-08-07] VITALS: Ht 182.9 cm; Wt 161.0 kg
[~2017-08-07 16:58] MED LIST changes: +AMLO5TAB2 PO; -ASPI81TA11 PO; +ASPI81TA23 PO; +BACL20TA PO; +KETO10 PO; +METF1000 PO; +PERC10TA27 PO
[2017-08-07 17:00] VITALS: BP 181/93; PULSE 78; RESP 17; TEMP 98.7; O2SAT 96
[2017-08-07] MEDS ORDERED: CYCL10TA PO (21:41)
[2017-08-07] MEDS ORDERED: PRED10PA2 PO (21:41)
[2017-08-07] MEDS ORDERED: RANI150T PO (21:43)
== END 2017-08-07 19:25 | disposition left against medical advice (07) ==
LOC: NED 16:58
DX: M54.9 Dorsalgia, unspecified (principal); Z53.21 Procedure and treatment not carried out due to patient leaving prior to being seen by health care provider
CPT/HCPCS: 99281

== ENCOUNTER 2017-08-07 20:55 | Emergency (ER) | payer MEDICARE ==
[~2017-08-07] VITALS: Ht 182.9 cm; Wt 163.8 kg
[2017-08-07 21:06] VITALS: BP 169/84; PULSE 72; RESP 18; TEMP 98.3; O2SAT 95
[2017-08-07] MEDS ORDERED: ORPHENADRINE INJ 60 MG/2 ML AMP IM ONE (21:30)
[2017-08-07] MEDS ORDERED: KETOROLAC TROMETHAMINE 60 MG/2 ML (IM) VIAL IM ONE (21:30)
--- NOTE | 2017-08-07 21:36 | PD ---
HPI Chief Complaint: Abdominal Pain Time Seen by Provider: 21:14 Travel History International Travel<30 days: No Contact w/Intl Traveler<30days: No Traveled to known affect area: No History of Present Illness HPI This is a 51-year-old male who presents to the emergency department with right sided low back pain, constant, severe, worse with walking that shoots down his right leg. It has been going on for a week and a half. It's worse when he stands up and improved when he lays flat. He denies any numbness or weakness in his legs and denies any urinary or bowel incontinence. He says he's been a little bit constipated but is taking something for it. He is also reporting some mild discomfort and pressure in his upper abdomen right near his umbilical hernia. He's been told in the past he needs that repaired. PFSH Past Medical History Asthma: No Autoimmune Disease: No Anxiety: Yes Heart Rhythm Problems: No Cancer: No Cardiac Catheterization: Yes Cardiomyopathy: Yes (CARDIOMEGALY) Cardiovascular Problems: Yes (CHF) High Cholesterol: Yes Chemotherapy: No Chest Pain: Yes Congestive Heart Failure: Yes COPD: No Coronary Artery Disease: Yes Diabetes: Yes Patient Takes Glucophage: No Diminished Hearing: No Endocrine: No Gastrointestinal Disorders: Yes GERD: Yes Gout: Yes Genitourinary: No Hepatitis: No Hypertension: Yes Immune Disorder: Yes Implanted Vascular Access Dvce: No Musculoskeletal: Yes (CHRONIC BACK PAIN) Neurologic: No Psychiatric: No Reproductive: No Respiratory: Yes (dyspnea on exertion/CHF) Integumentary: Yes (GOUT) Immunizations Current: No Myocardial Infarction: No Radiation Therapy: No Sleep Apnea: No Thyroid Disease: No Ulcer: Yes Past Surgical History Appendectomy: No Cholecystectomy: No Coronary Artery Bypass Graft: No Other Surgery: No Family History Family Myocardial Infarction: Yes Social History Alcohol Use: No Tobacco Use: No Substance Use: No Allergies-Medications (Allergen,Severity, Reaction): Coded Allergies: penicillin G (Unverified Allergy, Severe, HIVES, 08/07/17) Reported Meds & Prescriptions Reported Meds & Active Scripts Active Percocet (Oxycodone-Acetaminophen) 10-325 mg Tab 1 Tab PO Q4H PRN Ketorolac (Ketorolac Tromethamine) 10 Mg Tab 10 Mg PO BID PRN Baclofen 20 Mg Tab 20 Mg PO TID 7 Days Proair Respiclick Inh (Albuterol Sulfate) 90 Mcg/Act Aerp 2 Puff INH Q4-6H PRN Reported Amlodipine (Amlodipine Besylate) 5 Mg Tab 5 Mg PO DAILY Metformin (Metformin HCl) 1,000 Mg Tab 1,000 Mg PO BIDPC Losartan (Losartan Potassium) 100 Mg Tab 100 Mg PO DAILY Furosemide 40 Mg Tab 40 Mg PO DAILY Simvastatin 40 Mg Tab 40 Mg PO HS Isosorbide Mononitrate ER (Isosorbide Mononitrate) 60 Mg Tab 60 Mg PO BID Clonidine (Clonidine HCl) 0.2 Mg Tab 0.2 Mg PO TID PRN Aspirin EC (Aspirin) 81 Mg Tabdr 81 Mg PO DAILY Metoprolol Tartrate 100 Mg Tab 100 Mg PO BID Sertraline (Sertraline HCl) 50 Mg Tab 50 Mg PO DAILY Review of Systems Except as stated in HPI: all other systems reviewed are Neg Physical Exam Narrative GENERAL: morbidly obese SKIN: Warm and dry. HEAD: Atraumatic. Normocephalic. EYES: Pupils equal and round. ENT: No nasal bleeding or discharge. Mucous membranes pink and moist. NECK: Trachea midline. CARDIOVASCULAR: Regular rate and rhythm. 2+ bilateral d.p. pulses. Legs are warm and well perfused RESPIRATORY: No accessory muscle use. Clear to auscultation. Breath sounds equal bilaterally. GASTROINTESTINAL: Abdomen soft, non-tender, reducible umbilical hernia MUSCULOSKELETAL: Pain in right lower extremity is reproduced by straight leg raise of left leg. NEUROLOGICAL: Awake and alert. No obvious cranial nerve deficits. Motor grossly within normal limits. Five out of 5 muscle strength in the arms and legs. PSYCHIATRIC: Appropriate mood and affect; insight and judgment normal. Data Data Last Documented VS Vital Signs Date Time Temp Pulse Resp B/P (MAP) Pulse Ox O2 Delivery O2 Flow Rate FiO2 08/07/17 21:06 98.3 72 18 169/84 (112) 95 Orders Orders Ketorolac Inj (Toradol Inj) (08/07/17 21:30) Orphenadrine Inj (Norflex Inj) (08/07/17 21:30) Ondansetron Odt (Zofran Odt) (08/07/17 21:45) MDM Medical Decision Making Medical Screen Exam Complete: Yes Emergency Medical Condition: Yes Interpretation(s) febrile, no tachycardia, hypertensive Differential Diagnosis sciatica, epidural abscess, cauda equina syndrome, chronic pain Narrative Course This is a 51 year old male who presents to the emergency department with low back pain that radiates down the right leg. He has pain with contralateral straight leg raise. He has a normal neurovascular exam. I suspect the patient has a lumbosacral radiculopathy from an acute disc herniation. (-) hx of IVDU. Pt. was advised to follow up with his primary care physician regarding physical therapy referral. Pt. was given antiinflammatories and muscle relaxer in the emergency department and will be discharged on prednisone and muscle relaxer. Diagnosis Primary Impression: Lumbosacral radiculopathy Patient Instructions: General Instructions Additional Instructions: If you develop weakness, numbness, inability to walk, loss of your bowels or bladder return to the emergency department. Follow up with your primary care physician regarding physical therapy evaluation. Med/Other Pt SpecificInfo: Prescription(s) given Scripts Prednisone (48) 10 mg tab Dose Pack (Prednisone (48) 10 mg tab Dose Pack) 10 Mg Dspk 10 MG PO DIRECTED for Inflammation, #1 DSPK 0 Refills Prov: Christina Zaman MD 08/07/17 Cyclobenzaprine (Flexeril) 10 Mg Tab 10 MG PO TID for Muscle Spasm, #20 TAB 0 Refills Prov: Christina Zaman MD 08/07/17 Disposition: 01 DISCHARGE HOME Condition: Stable Christina Zaman MD Aug 07, 2017 21:36
[2017-08-07] MEDS ORDERED: CYCL10TA PO (21:41)
[2017-08-07] MEDS ORDERED: PRED10PA2 PO (21:41)
[2017-08-07] MEDS ORDERED: RANI150T PO (21:43)
[2017-08-07] MEDS ORDERED: ONDANSETRON ODT 4 MG TAB PO ONE (21:45)
== END 2017-08-07 22:04 | disposition home or self-care (01) ==
LOC: PHED 20:55
DX: M54.17 Radiculopathy, lumbosacral region (principal); K59.00 Constipation, unspecified; R10.33 Periumbilical pain; E11.9 Type 2 diabetes mellitus without complications; I10 Essential (primary) hypertension; E78.00 Pure hypercholesterolemia, unspecified; Z79.84 Long term (current) use of oral hypoglycemic drugs; Z86.79 Personal history of other diseases of the circulatory system; Z87.19 Personal history of other diseases of the digestive system; Z87.39 Personal history of other diseases of the musculoskeletal system and connective tissue
CPT/HCPCS: 96372; 99284; J1885; J2360

== ENCOUNTER 2017-10-16 10:08 | Emergency (ER) | payer MEDICARE | END 2017-10-16 12:10 | disposition home or self-care (01) | LOC: PHED 10:08 → PHEFT 12:10 | DX: N64.4 Mastodynia (principal); I11.0 Hypertensive heart disease with heart failure; E11.9 Type 2 diabetes mellitus without complications; Z79.82 Long term (current) use of aspirin | CPT/HCPCS: 99284 ==